=== PATIENT | female | born 2005 | race Caucasian/White ===

== ENCOUNTER 2024-12-24 14:16 | Outpatient (AMB) | payer MEDICAID, SELFPAY ==
[2024-12-24 14:30] VITALS: BP 112/76; PULSE 68; RESP 14; TEMP 36.8; O2SAT 99; BMI 25.5
--- NOTE | 2024-12-24 14:30 | OBCLNT_ITS ---
Vital Signs 12/24/24 14:30 Height 1.75 m Height Method Stated Weight 78.585 kg Weight Measurement Method Standing Scale BMI 25.5 BP 112/76 Blood Pressure Source Automatic Cuff Blood Pressure Location Left Upper Arm Position Sitting Respiration 14 Pulse 68 Pulse Source Monitor Temp 98.2 F Temp Source Oral Pulse Oximetry (%) 99 Oxygen Delivery Method Room Air Allergies/Home Meds Allergies & Medications Allergies No Known Allergies Allergy (Verified 12/24/24 14:31) Medication Reconciliation No Known Home Medications 12/24/24 [History Confirmed 12/24/24] Intake Visit Data Collection New Patient or Established: New Patient (never been to [facility]) Reason for Visit:: first part care Seen by Clinical Staff ONLY (RN/MA): No Dye Automation Operator Required: No Do You Feel Safe at Home: Yes Authorities Contacted: N/A PCP or OBGYN visit in last 3 months: No Hx Now: Yes Are you currently on any form of Control: No Last menstrual period: 11/08/24 Pain Present Currently: No Pain Scale Used: Joseph-[place]/Numerical Pain scale:: 0 Smoking Status Smoking Status: Never smoker Questionnaires Covid-19 Vaccine Questionnaire Has patient been vacinated for Covid-19 Have you been vacinated for Covid-19: No PHQ-9 PHQ-2 Over the last 2 weeks, how often have you been bothered by any of the following problems? 1. Little interest or pleasure in doing things: not at all 2. Feeling down, depressed, or hopeless: not at all Total score: 0 PHQ-9 3. Trouble falling or staying asleep, or sleeping too much: Not at all 4. Feeling tired or having little energy: Not at all 5. Poor appetite or overeating: Not at all 6. Feeling bad about yourself - or that you are a failure or have let yourself or your family down: Not at all 7. Trouble concentrating on things, such as reading the newspaper or watching television: Not at all 8. Moving or speaking so slowly that other people could have noticed? - Or the opposite - being so fidgety or restless that you have been moving around a lot more than usual: not at all 9. Thoughts that you would be better off or of hurting yourself in some way: Not at all Total score: 0 Source: Developed by Drs. Todd Dorsey, Debbie Puentes, Jalil Cook and colleagues, with an educational [place] from [employer]. Depression screen completed yes Social History Living Situation History Marital Status: Life Partner Lives With: Family Housing: House Tobacco History Smoking Status: Never smoker Second Hand Smoke Exposure: No Alcohol History Alcohol Intake: Never Substance Use History Substance Use: none Domestic Abuse History Do You Feel Safe at Home: Yes Past Medical History Past Medical History Have you ever been diagnosed with any of the following: Neurological Problems Cerebrovascular Accident (CVA): No Transient Ischemic Attacks (TIA): No Dementia: No Alzheimer's Disease: No Parkinson's Disease: No Brain Tumor: No Meningitis: No Seizures: No Epilepsy: No Guillain-[place] Syndrome: No Cardiology Problems Myocardial Infarction: No Cardiac Arrhythmia: No Atrial Fibrillation: No Angina: No Heart Murmur: No Coronary Artery Disease: No Atherosclerotic Heart Disease: No Peripheral Vascular Disease: No Hypertension: No (grandparents) Respiratory Problems Chronic Obstructive Pulmonary Disease (COPD): No Asthma: No Bronchitis: No Emphysema: No Tuberculosis: No Hx Cough: No Cough: No Wheezing: No Chest Deformities: No Smoking: No Smoking Cessation Counseling: No Smoking Exposure: No Tobacco Use: No Stomache/Intestinal Problems Liver Cancer: No Hepatitis: No Cirrhosis: No Pancreatic Cancer: No Gall Bladder Disease: No Gastrointestinal Bleed: No Esophageal Varices: No Genital/Urinary Problems Chronic Kidney Disease: No Renal Disease: No Kidney Stones: No Neurogenic Bladder: No Inguinal Hernia: No Dialysis: No Prostate Cancer: No Benign Prostatic Hyperplasia: No Reproductive Problems Breast Cancer: No Endometriosis: No Fibroids: No Genital Herpes: No Gonorrhea: No Previous Pregnancies: No Syphilis: No Musculoskeletal Problems Muscular Dystrophy: No Myasthenia Gravis: No Marfan's Syndrome: No Bone Cancer: No Arthritis: No Rheumatoid Arthritis: No Osteoporosis: No Head,Eye,Nose,Throat Problems Cataracts: No Glaucoma: No Blind: No Retinal Detachment: No Macular Degeneration: No Chronic Ear Infections: No Deafness: No Eye Prosthesis: No Endocrine Problems Diabetes Mellitus Type 1: No Diabetes Mellitus Type 2: No (grandmother) Michaela's Syndrome: No Anil's Disease: No Blood Problems Anemia: No Leukemia: No Hemophilia: No Thalassemia: No Sickle Cell Disease: No Clotting Problems: No Psychologic Problems Schizophrenia: No Recreational Drug Use: No Bipolar Disorder: No Depression: No Anxiety: No Behavior Problems: No Self-Mutilation: No Other Problems Hospitalization: No Autoimmune Disease: No Down Syndrome: No Autism: No Cosmetic Surgery: No Shingles: No Organ Transplant: No Chemotherapy: No Surgical History Angioplasty: No Appendectomy: No Bariatric Surgery: No Breast Surgery: No Cancer Surgery: No Carotid Endarterectomy: No Cholecystectomy: No Colectomy: No Colostomy: No Coronary Artery Bypass Graft: No Valve Replacement: No Herniorrhaphy: No Total Hip Replacement: No History of Present Illness HPI Narrative The patient presents for her first visit. Her last menstrual period was on November 08, making her approximately 7 weeks . She reports experiencing nausea and vomiting, which are consistent with early symptoms. The patient denies any cramping or vaginal bleeding. She is not currently taking vitamins. OB Initial Visit Menstrual History Menstrual reliability: definite Flow: normal Menstrual regularity: regular Monthly: Yes Age at menarche: 11 On control pills at conception: No Date of positive home test: 12/16/24 Associated symptoms (LMP): Reports nausea, vomiting, irritability and other (vaginal dicharge, headaches) OB History : 1 Infection History & Risk Evaluation History of STDs: none Genetic Screening & History Genetic Screening/Teratology Counseling - Includes patient, baby's father, or anyone in either family with: 1. Patient's age 35 years or older as of estimated date of delivery: No 2. Thalassemia (Malawian, Stateless, Mediterranean, or Background); MCV less than 80: No 3. Neural Tube Defect (Meningomyelocele, Spina Bifida, or Anencephaly): No 5. Down Syndrome: No 6. Vu-Sachs (Ashkenazi Rastafarian, Cajun, Danish Leslie): No 7. [place] Disease (Ashkenazi Rastafarian): No 8. Familial Dysautonomia (Ashkenazi Rastafarian): No 9. Sickle Cell Disease or Trait (): No 10. Hemophilia or other blood disorders: No 11. Muscular Dystrophy: No 12. Cystic Fibrosis: No 13. [place]'s Chorea: No 14. Mental Retardation/Autism: No 15. Other inherited genetic or chromosomal disorder: No 16. Maternal Metabolic Disorder (EG,TYPE 1 Diabetes, PKU): No 17. Patient or baby's father had a child with defects not listed above: No 18. Recurrent loss or a stillbirth: No 19. Medications (including supplements, vitamins, herbs or otc drugs)/illicit/recreational drugs/alcohol since last menstrual period: No 20. Any other: No Infection History 1. Live with someone with TB or exposed to TB: No 2. Rash or viral illness since last menstrual period: No 3. Hepatitis B,C: No Other (see comments) Source: [employer] OB Flowsheet OB Flowsheet Initial Weight: Not Recorded Date -?-?-?-?-?-?-?-?-?-?-?-?- EGA Weight Edema CTX Effacement BP Fundal ht Pres Dilation Effacement Station Visit Note Alb Glu FHR Mov 12/24/24 -?-?-?-?-?-?-?-?-?-?-?-?- 6w 4d 78.585 kg 112/76 New O B. 7w. Bedside c/w dates. 4w. Labs 167 Review of Systems Review of Systems Systems Reviewed: All systems reviewed, normal except as documented Gastrointestinal Gastrointestinal: Reports nausea and Reports vomiting Psychiatric Psychiatric: Reports irritability Exam General Limitations: no limitations General Appearance: alert, in no apparent distress, comfortable, cooperative, healthy appearing, well developed and well groomed Chest Chest inspection: Present normal inspection and symmetric chest wall rise Abdominal Abdominal exam: Present soft and normal bowel sounds Psych Psychiatric exam: Present normal affect and normal mood Skin Skin exam: Present warm, dry, intact and normal color Assessment & Plan Diagnosis / Problem List (1) Supervision of high risk , unspecified, first trimester: Status: Acute Plan: Patient presents for first visit at approximately 7 weeks gestation based on last menstrual period of November 08. Ultrasound was performed, revealing a small sac that was difficult to measure due to its size. Patient reports nausea but denies bleeding. No other significant symptoms or concerns were reported. - Perform blood tests as ordered - Follow-up appointment in 2 weeks for repeat ultrasound and measurement - vitamin prescription to be sent to patient's pharmacy Office Procedures OB Clinic LOC & Office Proc's Nursing/Assessment Patient Status: Established Patient OB Clinic Nursing Assessment: Medication Reconciliation, Update PMH in EMR and Vital Signs OB Clinic Coordination of Care: Complex Care and Chronic Disease 1-5, Consent,records obtained, informed consent, Education Simp Pt/Fam, Lab and Imaging orders and Staff clarify orders Special Needs: Heart tones Established Patient Charge Established Patient Point Assignment: 130 Established Patient Point Charge: EP Level 4 (120-155) Bedside Ultrasounds US Transabdominal >14 weeks at bedside: Yes
== END 2024-12-24 14:59 | disposition home or self-care (01) ==
LOC: HODSOBC 14:16
PROVIDERS: Supervising Provider Obstetrics & Gynecology; Visit Provider Obstetrics & Gynecology
DX: O09.91 Supervision of high risk pregnancy, unspecified, first trimester (principal); Z3A.01 Less than 8 weeks gestation of pregnancy
CPT/HCPCS: 76805; 99214; G0463

== ENCOUNTER 2025-01-05 14:26 | Outpatient (AMB) | payer MEDICAID, SELFPAY ==
--- NOTE | 2025-01-05 14:25 | OBCLNT_ITS ---
Vital Signs 01/05/25 14:29 Height 1.75 m Height Method Stated Weight 78.642 kg Weight Measurement Method Standing Scale BMI 25.7 BP 116/73 Blood Pressure Source Automatic Cuff Blood Pressure Location Left Upper Arm Position Sitting Respiration 14 Pulse 66 Pulse Source Monitor Temp 98.2 F Temp Source Oral Pulse Oximetry (%) 98 Oxygen Delivery Method Room Air Allergies/Home Meds Allergies & Medications Allergies No Known Allergies Allergy (Verified 01/05/25 14:31) Medication Reconciliation doxylamine 10 mg-pyridoxine (vit B6) 10 mg tablet,delayed release (Diclegis) 1 tab PO BID 30 days #60 tabs 01/05/25 [Rx] ondansetron 4 mg disintegrating tablet 4 mg PO Q6H PRN nausea and vomiting 30 days #120 tabs 01/05/25 [Rx] vitamins with calcium no.72-iron 29 mg-folic acid 1 mg tablet ( Plus) 1 tab PO QDAY 90 days #90 tabs 01/05/25 [Rx] Intake Visit Data Collection New Patient or Established: Established Patient (seen at [facility] within 3 years) Reason for Visit:: CARE Seen by Clinical Staff ONLY (RN/MA): No Medicare Biller Required: Yes Medicare Biller's name/title: ISMA GROSSMAN Do You Feel Safe at Home: Yes Authorities Contacted: N/A PCP or OBGYN visit in last 3 months: Yes Hx Now: Yes Are you currently on any form of Control: No Pain Present Currently: Yes Pain Location: Head Pain Scale Used: Joseph-[place]/Numerical Pain scale:: 6 Smoking Status Smoking Status: Never smoker Are you interested in Quitting?: No Questionnaires Covid-19 Vaccine Questionnaire Has patient been vacinated for Covid-19 Have you been vacinated for Covid-19: No PHQ-9 PHQ-2 Over the last 2 weeks, how often have you been bothered by any of the following problems? 1. Little interest or pleasure in doing things: not at all 2. Feeling down, depressed, or hopeless: not at all Total score: 0 PHQ-9 3. Trouble falling or staying asleep, or sleeping too much: Not at all 4. Feeling tired or having little energy: Not at all 5. Poor appetite or overeating: Not at all 6. Feeling bad about yourself - or that you are a failure or have let yourself or your family down: Not at all 7. Trouble concentrating on things, such as reading the newspaper or watching television: Not at all 8. Moving or speaking so slowly that other people could have noticed? - Or the opposite - being so fidgety or restless that you have been moving around a lot more than usual: not at all 9. Thoughts that you would be better off or of hurting yourself in some way: Not at all Total score: 0 Source: Developed by Drs. Todd Dorsey, Debbie Puentes, Jalil Cook and colleagues, with an educational [place] from [employer]. Depression screen completed yes Social History Living Situation History Lives With: Family Housing: House Tobacco History Smoking Status: Never smoker Second Hand Smoke Exposure: No Alcohol History Alcohol Intake: Never Substance Use History Substance Use: none Domestic Abuse History Do You Feel Safe at Home: Yes Past Medical History Past Medical History Have you ever been diagnosed with any of the following: Neurological Problems Cerebrovascular Accident (CVA): No Transient Ischemic Attacks (TIA): No Dementia: No Alzheimer's Disease: No Parkinson's Disease: No Brain Tumor: No Meningitis: No Seizures: No Epilepsy: No Guillain-[place] Syndrome: No Cardiology Problems Myocardial Infarction: No Cardiac Arrhythmia: No Atrial Fibrillation: No Angina: No Heart Murmur: No Coronary Artery Disease: No Atherosclerotic Heart Disease: No Peripheral Vascular Disease: No Hypertension: No (grandparents) Respiratory Problems Chronic Obstructive Pulmonary Disease (COPD): No Asthma: No Bronchitis: No Emphysema: No Tuberculosis: No Hx Cough: No Cough: No Wheezing: No Chest Deformities: No Smoking: No Smoking Cessation Counseling: No Smoking Exposure: No Tobacco Use: No Stomache/Intestinal Problems Liver Cancer: No Hepatitis: No Cirrhosis: No Pancreatic Cancer: No Gall Bladder Disease: No Gastrointestinal Bleed: No Esophageal Varices: No Genital/Urinary Problems Renal Disease: No Kidney Stones: No Neurogenic Bladder: No Inguinal Hernia: No Dialysis: No Reproductive Problems Breast Cancer: No Endometriosis: No Fibroids: No Genital Herpes: No Gonorrhea: No Previous Pregnancies: No Syphilis: No Musculoskeletal Problems Muscular Dystrophy: No Myasthenia Gravis: No Marfan's Syndrome: No Bone Cancer: No Arthritis: No Rheumatoid Arthritis: No Osteoporosis: No Head,Eye,Nose,Throat Problems Cataracts: No Glaucoma: No Blind: No Retinal Detachment: No Macular Degeneration: No Chronic Ear Infections: No Deafness: No Eye Prosthesis: No Endocrine Problems Diabetes Mellitus Type 1: No Diabetes Mellitus Type 2: No (grandmother) Michaela's Syndrome: No [place]'s Disease: No Blood Problems Anemia: No Leukemia: No Hemophilia: No Thalassemia: No Sickle Cell Disease: No Clotting Problems: No Psychologic Problems Schizophrenia: No Recreational Drug Use: No Bipolar Disorder: No Depression: No Anxiety: No Behavior Problems: No Self-Mutilation: No Other Problems Hospitalization: No Down Syndrome: No Autism: No Cosmetic Surgery: No Shingles: No Organ Transplant: No Chemotherapy: No Surgical History Angioplasty: No Appendectomy: No Bariatric Surgery: No Breast Surgery: No Cancer Surgery: No Carotid Endarterectomy: No Cholecystectomy: No Colectomy: No Colostomy: No Coronary Artery Bypass Graft: No Valve Replacement: No Herniorrhaphy: No Total Hip Replacement: No History of Present Illness HPI Kiley Kebede presents for a visit with complaints of nausea and headaches. The patient reports that the nausea is causing her headaches. No specific details about the onset, duration, severity, or impact on daily functioning were provided. The patient has not yet started any medication for her symptoms, as evidenced by the clinician's statement about sending a prescription now. The patient is in the early stages of , with an ultrasound performed during the visit. The clinician noted that the patient's uterus is tilted, making it difficult to obtain clear images. However, a heartbeat was detected and demonstrated to the patient. Immunizations - Rubella: Patient is immune Review of Systems HEENT: Positive for headache. Gastrointestinal: Positive for nausea. OB Ultrasound OB Ultrasound Ultrasound technique: transabdominal Gestational sac assessment: Presence, location, size, shape: visualized, heartbeat detected FHR 175 bpm. Images not clear due to tilted uterus Visit OB Visit Log OB Flowsheet Initial Weight: Not Recorded Date -?-?-?-?-?-?-?-?-?-?-?-?- EGA Weight Edema CTX Effacement BP Fundal ht Pres Dilation Effacement Station Visit Note Alb Glu FHR Mov 12/24/24 -?-?-?-?-?-?-?-?-?-?-?-?- 6w 4d 78.585 kg 112/76 New O B. 7w. Bedside c/w dates. 4w. Labs 167 01/05/25 -?-?-?-?-?-?-?-?-?-?-?-?- 8w 2d 78.642 kg 116/73 Jaylin Kebede presents for a visit with complaints of nausea and headaches. - STAT transvaginal ultrasound ordered - Return for NIPT (Non-Invasive Testing) once due date is confirmed - Follow up with ultrasound results - Prescription for anti-nausea medicatio n to be sent to the pharmacy - Provide patient with printed prescript ion. Initial labs were performed on 01-02-2025. Results show: - Hepatitis B: Negative - Hepatitis C: Negative - RPR: Non-reactive - Rubella: Immune - Blood group: A positive - Antibody screen: Negative - HIV: Negative - Gonorrhea and chlamydia: Negative - Urine culture: Trace ketones, 1+ occult blood, mixed genital antelmo 175 active ANOOP Calculator Estimated Delivery Date Method Current WG Current Estimate 08/15/25 LMP (Certain) 8w 4d Assessment & Plan Diagnosis / Problem List (1) Supervision of high risk , unspecified, first trimester: Status: Acute (2) Hyperemesis gravidarum: Status: Acute (3) Nausea: Status: Acute Plan Ana Kebede presents for care with nausea and headache. Initial labs and ultrasound were performed. Intrauterine Assessment: Intrauterine confirmed via ultrasound. heartbeat was visualized, but due to a tilted uterus, images were not clear. Patient was sent for a STAT transvaginal ultrasound for better visualization and to confirm the due date. Plan: - STAT transvaginal ultrasound ordered - Return for NIPT (Non-Invasive Testing) once due date is confirmed - Follow up with ultrasound results Nausea and headache Assessment: Patient reports nausea, which is causing headaches. This is likely -related nausea and vomiting (morning sickness). Plan: - Prescription for anti-nausea medication to be sent to the pharmacy - Provide patient with printed prescription Initial laboratory results Assessment: Initial labs were performed on 01-02-2025. Results show: - Hepatitis B: Negative - Hepatitis C: Negative - RPR: Non-reactive - Rubella: Immune - Blood group: A positive - Antibody screen: Negative - HIV: Negative - Gonorrhea and chlamydia: Negative - Urine culture: Trace ketones, 1+ occult blood, mixed genital antelmo Plan: - Review and interpret all lab results - Address any abnormal findings as necessary Office Procedures OB Clinic LOC & Office Proc's Nursing/Assessment Patient Status: Established Patient OB Clinic Nursing Assessment: Medication Reconciliation, Update PMH in EMR and Vital Signs OB Clinic Coordination of Care: Complex Care and Chronic Disease 1-5, Consent,records obtained, informed consent, Education Simp Pt/Fam, Results/Orders obtained and Staff clarify orders Special Needs: Heart tones Established Patient Charge Established Patient Point Assignment: 120 Established Patient Point Charge: EP Level 4 (120-155) Bedside Ultrasounds US Transabdominal >14 weeks at bedside: Yes
[2025-01-05 14:29] VITALS: BP 116/73; PULSE 66; RESP 14; TEMP 36.8; O2SAT 98; BMI 25.7
== END 2025-01-05 14:57 | disposition home or self-care (01) ==
LOC: HODSOBC 14:26
PROVIDERS: PCP Obstetrics & Gynecology; Referring Provider Obstetrics & Gynecology; Supervising Provider Obstetrics & Gynecology; Visit Provider Obstetrics & Gynecology
DX: O09.891 Supervision of other high risk pregnancies, first trimester (principal); Z3A.08 8 weeks gestation of pregnancy; O21.0 Mild hyperemesis gravidarum; O99.891 Other specified diseases and conditions complicating pregnancy; R51.9 Headache, unspecified
CPT/HCPCS: 76805; 99214; G0463

== ENCOUNTER 2025-01-19 10:29 | Outpatient (AMB) | payer MEDICAID, SELFPAY ==
--- NOTE | 2025-01-19 10:38 | OBCLNT_ITS ---
Vital Signs 01/19/25 10:49 Height 1.75 m Height Method Stated Weight 78.018 kg Weight Measurement Method Standing Scale BMI 25.4 BP 108/71 Blood Pressure Source Automatic Cuff Blood Pressure Location Left Upper Arm Position Sitting Respiration 16 Pulse 74 Pulse Source Monitor Temp 98.4 F Temp Source Oral Pulse Oximetry (%) 98 Oxygen Delivery Method Room Air Allergies/Home Meds Allergies & Medications Allergies No Known Allergies Allergy (Verified 01/19/25 10:50) Medication Reconciliation doxylamine 10 mg-pyridoxine (vit B6) 10 mg tablet,delayed release (Diclegis) 1 tab PO BID 30 days #60 tabs 01/05/25 [Rx Confirmed 01/19/25] ondansetron 4 mg disintegrating tablet 4 mg PO Q6H PRN nausea and vomiting 30 days #120 tabs 01/05/25 [Rx Confirmed 01/19/25] vitamins with calcium no.72-iron 29 mg-folic acid 1 mg tablet ( Plus) 1 tab PO QDAY 90 days #90 tabs 01/05/25 [Rx Confirmed 01/19/25] omeprazole 40 mg capsule,delayed release 40 mg PO QDAY 30 days #30 caps 01/19/25 [Rx] Intake Visit Data Collection New Patient or Established: Established Patient (seen at [facility] within 3 years) Reason for Visit:: CARE Seen by Clinical Staff ONLY (RN/MA): No Concaving Machine Operator Required: Yes Concaving Machine Operator's name/title: ISMABELÉN GROSSMAN Do You Feel Safe at Home: Yes Authorities Contacted: N/A PCP or OBGYN visit in last 3 months: No Hx Now: Yes Are you currently on any form of Control: No Pain Present Currently: No Pain Scale Used: Joseph-[place]/Numerical Pain scale:: 0 Smoking Status Smoking Status: Never smoker Questionnaires Covid-19 Vaccine Questionnaire Has patient been vacinated for Covid-19 Have you been vacinated for Covid-19: No PHQ-9 PHQ-2 Over the last 2 weeks, how often have you been bothered by any of the following problems? 1. Little interest or pleasure in doing things: not at all 2. Feeling down, depressed, or hopeless: not at all Total score: 0 PHQ-9 3. Trouble falling or staying asleep, or sleeping too much: Not at all 4. Feeling tired or having little energy: Not at all 5. Poor appetite or overeating: Not at all 6. Feeling bad about yourself - or that you are a failure or have let yourself or your family down: Not at all 7. Trouble concentrating on things, such as reading the newspaper or watching television: Not at all 8. Moving or speaking so slowly that other people could have noticed? - Or the opposite - being so fidgety or restless that you have been moving around a lot more than usual: not at all 9. Thoughts that you would be better off or of hurting yourself in some way: Not at all Total score: 0 Source: Developed by Drs. Todd Dorsey, Debbie Puentes, Jalil Cook and colleagues, with an educational [place] from [employer]. Depression screen completed yes Social History Living Situation History Lives With: Family Housing: House Tobacco History Smoking Status: Never smoker Second Hand Smoke Exposure: No Alcohol History Alcohol Intake: Never Substance Use History Substance Use: none Domestic Abuse History Do You Feel Safe at Home: Yes Past Medical History Past Medical History Have you ever been diagnosed with any of the following: Neurological Problems Cerebrovascular Accident (CVA): No Transient Ischemic Attacks (TIA): No Dementia: No Alzheimer's Disease: No Parkinson's Disease: No Brain Tumor: No Meningitis: No Seizures: No Epilepsy: No Guillain-[place] Syndrome: No Cardiology Problems Myocardial Infarction: No Cardiac Arrhythmia: No Atrial Fibrillation: No Angina: No Heart Murmur: No Coronary Artery Disease: No Atherosclerotic Heart Disease: No Peripheral Vascular Disease: No Hypertension: No (grandparents) Respiratory Problems Chronic Obstructive Pulmonary Disease (COPD): No Asthma: No Bronchitis: No Emphysema: No Tuberculosis: No Hx Cough: No Cough: No Wheezing: No Chest Deformities: No Smoking: No Smoking Cessation Counseling: No Smoking Exposure: No Tobacco Use: No Stomache/Intestinal Problems Liver Cancer: No Hepatitis: No Cirrhosis: No Pancreatic Cancer: No Gall Bladder Disease: No Gastrointestinal Bleed: No Esophageal Varices: No Genital/Urinary Problems Renal Disease: No Kidney Stones: No Neurogenic Bladder: No Inguinal Hernia: No Dialysis: No Reproductive Problems Breast Cancer: No Endometriosis: No Fibroids: No Genital Herpes: No Gonorrhea: No Previous Pregnancies: No Syphilis: No Musculoskeletal Problems Muscular Dystrophy: No Myasthenia Gravis: No Marfan's Syndrome: No Bone Cancer: No Arthritis: No Rheumatoid Arthritis: No Osteoporosis: No Head,Eye,Nose,Throat Problems Cataracts: No Glaucoma: No Blind: No Retinal Detachment: No Macular Degeneration: No Chronic Ear Infections: No Deafness: No Eye Prosthesis: No Endocrine Problems Diabetes Mellitus Type 1: No Diabetes Mellitus Type 2: No (grandmother) Michaela's Syndrome: No Augusta's Disease: No Blood Problems Anemia: No Leukemia: No Hemophilia: No Thalassemia: No Sickle Cell Disease: No Clotting Problems: No Psychologic Problems Schizophrenia: No Recreational Drug Use: No Bipolar Disorder: No Depression: No Anxiety: No Behavior Problems: No Self-Mutilation: No Other Problems Hospitalization: No Down Syndrome: No Autism: No Cosmetic Surgery: No Shingles: No Organ Transplant: No Chemotherapy: No Surgical History Angioplasty: No Appendectomy: No Bariatric Surgery: No Breast Surgery: No Cancer Surgery: No Carotid Endarterectomy: No Cholecystectomy: No Colectomy: No Colostomy: No Coronary Artery Bypass Graft: No Valve Replacement: No Herniorrhaphy: No Total Hip Replacement: No History of Present Illness HPI Narrative - Ana Kebede is a 1 para 0 patient presenting for care at 10 weeks and 2 days gestation by last menstrual period. - Estimated due date is August 15, 2025, confirmed by recent ultrasound. - Patient reports experiencing nausea and vomiting. - She mentions having acid reflux. - No medications were previously prescribed for these symptoms. No contractions/ LOF/VB, reports good FM No CLEMENS/VC/RUQ/Epig pain Visit OB Visit Log OB Flowsheet Initial Weight: Not Recorded Date -?-?-?-?-?-?-?-?-?-?-?-?- EGA Weight Edema CTX Effacement BP Fundal ht Pres Dilation Effacement Station Visit Note Alb Glu FHR Mov 12/24/24 -?-?-?-?-?-?-?-?-?-?-?-?- 6w 4d 78.585 kg 112/76 New O B. 7w. Bedside c/w dates. 4w. Labs 167 01/05/25 -?-?-?-?-?-?-?-?-?-?-?-?- 8w 2d 78.642 kg 116/73 Jaylin a Kebede presents for a visit with complaints of nausea and headaches. - STAT transvaginal ultrasound ordered - Return for NIPT (Non-Invasive Testing) once due date is confirmed - Follow up with ultrasound results - Prescription for anti-nausea medicatio n to be sent to the pharmacy - Provide patient with printed prescript ion. Initial labs were performed on 01-02-2025. Results show: - Hepatitis B: Negative - Hepatitis C: Negative - RPR: Non-reactive - Rubella: Immune - Blood group: A positive - Antibody screen: Negative - HIV: Negative - Gonorrhea and chlamydia: Negative - Urine culture: Trace ketones, 1+ occult blood, mixed genital antelmo 175 active 01/19/25 -?--?-?-?-?-?-?-?-?-?-?-?- 10w 2d 78.018 kg 108/71 No C TX/LOF/VB. Reports good FM. No CLEMENS/VS, Epig/RUQ pain. Complains of nausea, vomiting, and acid reflux. No prior medications started. Ultrasound (01/15/2025): Dating confirmed at 10w1d. Assessment & Plan: at 10w2d with IUP. First trimester symptoms include nausea and reflux. Prescribe reflux medication; send to [facility] Order genetic screening for aneuploidy a nd gender Provide comprehensive lab order s Continue routine care ANOOP Calculator Estimated Delivery Date Method Current WG Current Estimate 08/15/25 LMP (Certain) 10w 4d Exam General General Appearance: alert, in no apparent distress and healthy appearing Head Head exam: atraumatic Neck Neck exam: Present normal inspection and trachea midline Chest Chest inspection: Present normal inspection and symmetric chest wall rise External exam: Present normal external exam; Absent tenderness Neuro Neurological exam: Present oriented X3 Psych Psychiatric exam: Present normal affect and normal mood Assessment & Plan Diagnosis / Problem List (1) Hyperemesis gravidarum: Status: Acute (2) GERD (gastroesophageal reflux disease): Status: Acute Plan Problem List - , first trimester - Gastroesophageal reflux disease Assessment - Intrauterine at 10 weeks 2 days gestation by last menstrual period - Estimated due date 08/15/2025 - Ultrasound on 01/15/2025 confirmed gestational age of 10 weeks 1 day - 1 Para 0 - Patient experiencing nausea and vomiting Plan - Prescribe medication for acid reflux - Order genetic blood test for screening and gender determination - Provide patient with order for comprehensive lab tests - Send prescription to [facility] pharmacy Educated the patient on labor signs, including regular contractions, lower back pain, and changes in vaginal discharge. Advised avoiding heavy lifting and getting adequate rest. Instructed to contact the office immediately if any signs occur. Discussed the importance of a balanced diet rich in folic acid, iron, and calcium, and provided a list of recommended and to-avoid foods. Emphasized avoiding high-sugar foods to reduce gestational diabetes risk. Encouraged hydration and frequent, small meals for energy.. Office Procedures OB Clinic LOC & Office Proc's Nursing/Assessment Patient Status: Established Patient OB Clinic Nursing Assessment: Medication Reconciliation, Update PMH in EMR and Vital Signs OB Clinic Coordination of Care: Complex Care and Chronic Disease 1-5, Consent,records obtained, informed consent, Education Simp Pt/Fam, Results/Orders obtained and Staff clarify orders Special Needs: Heart tones Miscellaneous Interventions: Blood/Urine Collection Established Patient Charge Established Patient Point Assignment: 150 Established Patient Point Charge: EP Level 4 (120-155)
[2025-01-19 10:49] VITALS: BP 108/71; PULSE 74; RESP 16; TEMP 36.9; O2SAT 98; BMI 25.4
== END 2025-01-19 10:57 | disposition home or self-care (01) ==
LOC: HODSOBC 10:29
PROVIDERS: PCP Obstetrics & Gynecology; Referring Provider Obstetrics & Gynecology; Supervising Provider Obstetrics & Gynecology; Visit Provider Obstetrics & Gynecology
DX: O09.611 Supervision of young primigravida, first trimester (principal); Z3A.10 10 weeks gestation of pregnancy; O21.0 Mild hyperemesis gravidarum; O09.891 Supervision of other high risk pregnancies, first trimester; O99.611 Diseases of the digestive system complicating pregnancy, first trimester; K21.9 Gastro-esophageal reflux disease without esophagitis
CPT/HCPCS: 99214; G0463

== ENCOUNTER 2025-02-18 15:24 | Outpatient (AMB) | payer MEDICAID, SELFPAY ==
[2025-02-18 15:29] VITALS: BP 115/74; PULSE 69; RESP 15; TEMP 36.7; O2SAT 98; BMI 26.5
--- NOTE | 2025-02-18 15:29 | OBCLNT_ITS ---
Vital Signs 02/18/25 15:29 Height 1.75 m Height Method Stated Weight 81.25 kg Weight Measurement Method Standing Scale BMI 26.5 BP 115/74 Blood Pressure Source Automatic Cuff Blood Pressure Location Right Upper Arm Position Sitting Respiration 15 Pulse 69 Pulse Source Monitor Temp 98.1 F Temp Source Oral Pulse Oximetry (%) 98 Oxygen Delivery Method Room Air Allergies/Home Meds Allergies & Medications Allergies No Known Allergies Allergy (Verified 02/18/25 15:30) Medication Reconciliation doxylamine 10 mg-pyridoxine (vit B6) 10 mg tablet,delayed release (Diclegis) 1 tab PO BID 30 days #60 tabs 01/05/25 [Rx Confirmed 02/18/25] ondansetron 4 mg disintegrating tablet 4 mg PO Q6H PRN nausea and vomiting 30 days #120 tabs 01/05/25 [Rx Confirmed 02/18/25] vitamins with calcium no.72-iron 29 mg-folic acid 1 mg tablet ( Plus) 1 tab PO QDAY 90 days #90 tabs 01/05/25 [Rx Confirmed 02/18/25] omeprazole 40 mg capsule,delayed release 40 mg PO QDAY 30 days #30 caps 01/19/25 [Rx Confirmed 02/18/25] Intake Visit Data Collection New Patient or Established: Established Patient (seen at [facility] within 3 years) Reason for Visit:: CARE Seen by Clinical Staff ONLY (RN/MA): No Counselling Psychologist Required: Yes Counselling Psychologist's name/title: ISMA GROSSMAN Do You Feel Safe at Home: Yes Authorities Contacted: N/A PCP or OBGYN visit in last 3 months: Yes Hx Now: Yes Pain Present Currently: No Pain Scale Used: Joseph-[place]/Numerical Pain scale:: 0 Smoking Status Smoking Status: Never smoker Questionnaires Covid-19 Vaccine Questionnaire Has patient been vacinated for Covid-19 Have you been vacinated for Covid-19: Yes PHQ-9 PHQ-2 Over the last 2 weeks, how often have you been bothered by any of the following problems? 1. Little interest or pleasure in doing things: not at all 2. Feeling down, depressed, or hopeless: not at all Total score: 0 PHQ-9 3. Trouble falling or staying asleep, or sleeping too much: Not at all 4. Feeling tired or having little energy: Not at all 5. Poor appetite or overeating: Not at all 6. Feeling bad about yourself - or that you are a failure or have let yourself or your family down: Not at all 7. Trouble concentrating on things, such as reading the newspaper or watching television: Not at all 8. Moving or speaking so slowly that other people could have noticed? - Or the opposite - being so fidgety or restless that you have been moving around a lot more than usual: not at all 9. Thoughts that you would be better off or of hurting yourself in some way: Not at all Total score: 0 Source: Developed by Drs. Todd Dorsey, Debbie Puentes, Jalil Cook and colleagues, with an educational [place] from [employer]. 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 Patient reports nausea. Currently being treated for severe hyperemesis and gastroesophageal reflux. Denies CLEMENS, VC, and epigastric pain. - Ana Kebede is a 19-year-old at 14 weeks and 4 days gestation presenting for a visit. - Patient has been seen for previous visits at this clinic. - She is currently being treated for: - Severe hyperemesis - Gastroesophageal reflux - Patient reports improvement in her nausea symptoms. - All initial testing has been completed and confirmed. Care OB Visit Log OB Flowsheet Initial Weight: Not Recorded Date -?-?-?-?-?-?-?-?-?-?-?-?- EGA Weight BP Alb Glu CTX Pres Fundal ht FHR Mov Dilation Station Effacement Hx Notes Visit Note 12/24/24 -?-?-?-?-?-?-?-?-?-?-?-?- 6w 4d 78.585 kg 112/76 167 New OB. 7w. Bedside c/w dates. 4w. Labs 01/05/25 -?-?-?-?-?-?-?-?-?-?-?-?- 8w 2d 78.642 kg 116/73 175 active Ana Kebede presents for a visit with complaints of nausea and headaches. - STAT transvaginal ultrasound ordered - Return for NIPT (Non-Invasive Testing) once due date is confirmed - Follow up with ultrasound results - Prescription for anti-nausea medicatio n to be sent to the pharmacy - Provide patient with printed prescript ion. Initial labs were performed on 01-02-2025. Results show: - Hepatitis B: Negative - Hepatitis C: Negative - RPR: Non-reactive - Rubella: Immune - Blood group: A positive - Antibody screen: Negative - HIV: Negative - Gonorrhea and chlamydia: Negative - Urine culture: Trace ketones, 1+ occult blood, mixed genit al antelmo 01/19/25 -?-?-?-?-?-?-?-?-?-?-?-?- 10w 2d 78.018 kg 108/71 No CTX/LOF/VB. Reports good FM. No CLEMENS/VS, Epig/RUQ pain. Complains of nausea, vomiting, and acid reflux. No prior medications started. Ultrasound (01/15/2025): Dating confirmed at 10w1d. Assessment & Plan: at 10w2d with IUP. First trimester symptoms include nausea and reflux. Prescribe reflux medication; send to [facility] Order genetic screening for aneuploidy a nd gender Provide comprehensive lab order s Continue routine care 02/18/25 -?-?-?-?-?-?-?-?-?-?-?-?- 14w 4d 81.25 kg 115/74 at 14 weeks and 4 days gestation presents for routine care. Reports improvement in nausea; currently under treatment for severe hyperemesis and GERD. No other complaints. Denies CLEMENS, VC, or epigastric pain. heart tones 161 bpm. All initial labs completed; blood test from 2 days ago pending. Plan: Problem List: 14w4d, hyperemes is gravidarum, gastroesophageal reflux. Continue current medical management. Fol low-up in 4 weeks. Await bloodwork results. Anatomy ultrasound to be scheduled at 20 weeks; patient will receive call from [facility] Routine counseling provided. ANOOP Calculator Estimated Delivery Date Method Current WG Current Estimate 08/15/25 LMP (Certain) 16w 1d Exam General General Appearance: alert, in no apparent distress and healthy appearing Head Head exam: atraumatic Neck Neck exam: Present normal inspection and trachea midline Chest Chest inspection: Present normal inspection and symmetric chest wall rise External exam: Present normal external exam; Absent tenderness Neuro Neurological exam: Present oriented X3 Psych Psychiatric exam: Present normal affect and normal mood Office Procedures OB Clinic LOC & Office Proc's Nursing/Assessment Patient Status: Established Patient OB Clinic Nursing Assessment: Medication Reconciliation, Update PMH in EMR and Vital Signs OB Clinic Coordination of Care: Complex Care and Chronic Disease 1-5, Consent,records obtained, informed consent, Education Simp Pt/Fam, Lab and Imaging orders, Results/Orders obtained and Staff clarify orders Special Needs: Heart tones Established Patient Charge Established Patient Point Assignment: 135 Established Patient Point Charge: EP Level 4 (120-155) Assessment & Plan Diagnosis / Problem List (1) GERD (gastroesophageal reflux disease): Status: Acute (2) Nausea: Status: Acute (3) Hyperemesis gravidarum: Status: Acute (4) Supervision of high risk , unspecified, first trimester: Status: Acute Plan Irene Kebede is a 19-year-old at 14 weeks and 4 days gestation presenting for a visit, with a history of severe hyperemesis and gastroesophageal reflux. Intrauterine Assessment: Patient is at 14 weeks and 4 days gestation. heart rate was documented at 161 bpm, which is within normal range. The clinician noted that everything is looking good regarding the assessment. Plan: - Follow-up visit scheduled in one month - Ultrasound scheduled at 20 weeks gestation (patient to receive phone call from [facility] for appointment) Hyperemesis gravidarum Assessment: Patient has a history of severe hyperemesis gravidarum, which is currently being treated. The clinician inquired about the patient's nausea, to which the response indicated improvement. Plan: - Continue current treatment regimen (specifics not mentioned in transcript) Gastroesophageal reflux disease (GERD) Assessment: Patient has a history of gastroesophageal reflux, which is currently being treated. Plan: - Continue current treatment regimen (specifics not mentioned in transcript) screening Assessment: Patient underwent blood testing 2 days prior to this visit. Results are pending and expected to be available in 4-5 days. Plan: - Await results of recent blood tests Heart Rate (FHR) and Dates/Viability Verified Review Labs: Confirm results and address any abnormalities with treatment or referrals. History & Symptoms: Ask about nausea, vomiting, bleeding, or cramping. Screen for mental health concerns. Physical Exam: Check weight, blood pressure, and heart rate (via Doppler). Education: Discuss nutrition, exercise, and avoiding harmful substances. Review safe medications and warning signs (e.g., severe pain, bleeding). Screening Tests: Offer genetic screening if not done. Discuss upcoming anatomy scan (18-20 weeks). Plan: Schedule next visit (typically 4 weeks later) and any needed tests. Keep it supportive, address concerns, and ensure clear follow-up instructions.
== END 2025-02-18 16:14 | disposition home or self-care (01) ==
LOC: HODSOBC 15:24
PROVIDERS: PCP Obstetrics & Gynecology; Referring Provider Obstetrics & Gynecology; Supervising Provider Obstetrics & Gynecology; Visit Provider Obstetrics & Gynecology
DX: O09.892 Supervision of other high risk pregnancies, second trimester (principal); Z3A.14 14 weeks gestation of pregnancy; O21.0 Mild hyperemesis gravidarum; O99.612 Diseases of the digestive system complicating pregnancy, second trimester; K21.9 Gastro-esophageal reflux disease without esophagitis
CPT/HCPCS: 99214; G0463

== ENCOUNTER 2025-04-06 13:36 | Outpatient (AMB) | payer MEDICAID, SELFPAY ==
[2025-04-06 13:40] VITALS: BP 118/70; PULSE 83; RESP 17; TEMP 36.5; O2SAT 98; BMI 27.1
--- NOTE | 2025-04-06 13:40 | OBCLNT_ITS ---
Vital Signs 04/06/25 13:40 Height 1.75 m Height Method Measured Weight 83.178 kg Weight Measurement Method Standing Scale BMI 27.1 BP 118/70 Blood Pressure Source Automatic Cuff Blood Pressure Location Right Upper Arm Position Sitting Respiration 17 Pulse 83 Pulse Source Monitor Temp 97.7 F Temp Source Temporal Artery Scan Pulse Oximetry (%) 98 Oxygen Delivery Method Room Air Allergies/Home Meds Allergies & Medications Allergies No Known Allergies Allergy (Verified 04/06/25 13:41) Medication Reconciliation vitamins with calcium no.72-iron 29 mg-folic acid 1 mg tablet ( Plus) 1 tab PO QDAY 90 days #90 tabs 04/06/25 [Rx] cephalexin 500 mg capsule 500 mg PO QID 7 days #28 caps 04/08/25 [Rx] Intake Visit Data Collection New Patient or Established: Established Patient (seen at [facility] within 3 years) Reason for Visit:: OBC Consent obtained for Telemed Visit: No Seen by 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 1. Little interest or pleasure in doing things: not at all PHQ-9 8. Moving or speaking so slowly that other people could have noticed? - Or the opposite - being so fidgety or restless that you have been moving around a lot more than usual: not at all Source: Developed by Drs. Todd Dorsey, Debbie Puentes, Jalil Cook and colleagues, with an educational [place] from [employer]. 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 7w. Bedside c/w dates. 4w. Labs 01/05/25 -?-?-?-?-?-?-?-?-?-?-?-?- 8w 2d 78.642 kg 116/73 175 active Ana Kebede presents for a visit with complaints of nausea and headaches. - STAT transvaginal ultrasound ordered - Return for NIPT (Non-Invasive Testing) once due date is confirmed - Follow up with ultrasound results - Prescription for anti-nausea medicatio n to be sent to the pharmacy - Provide patient with printed prescript ion. Initial labs were performed on 01-02-2025. Results show: - Hepatitis B: Negative - Hepatitis C: Negative - RPR: Non-reactive - Rubella: Immune - Blood group: A positive - Antibody screen: Negative - HIV: Negative - Gonorrhea and chlamydia: Negative - Urine culture: Trace ketones, 1+ occult blood, mixed genit al antelmo 01/19/25 -?-?-?-?-?-?-?-?-?-?-?-?- 10w 2d 78.018 kg 108/71 No CTX/LOF/VB. Reports good FM. No CLEMENS/VS, Epig/RUQ pain. Complains of nausea, vomiting, and acid reflux. No prior medications started. Ultrasound (01/15/2025): Dating confirmed at 10w1d. Assessment & Plan: at 10w2d with IUP. First trimester symptoms include nausea and reflux. Prescribe reflux medication; send to [facility] Order genetic screening for aneuploidy a nd gender Provide comprehensive lab order s Continue routine care 02/18/25 -?-?-?-?-?-?-?-?-?-?-?-?- 14w 4d 81.25 kg 115/74 at 14 weeks and 4 days gestation presents for routine care. Reports improvement in nausea; currently under treatment for severe hyperemesis and GERD. No other complaints. Denies CLEMENS, VC, or epigastric pain. heart tones 161 bpm. All initial labs completed; blood test from 2 days ago pending. Plan: Problem List: 14w4d, hyperemes is gravidarum, gastroesophageal reflux. Continue current medical management. Fol low-up in 4 weeks. Await bloodwork results. Anatomy ultrasound to be scheduled at 20 weeks; patient will receive call from [employer]. Routine counseling provided. 04/06/25 -?-?-?-?-?-?-?-?-?-?-?-?- 21w 2d 83.178 kg 118/70 absent unknown 151 active at 21w2d by 04/05 MFM. FM+. FHR 151. Hyperemesis improved. MFM scan WNL. Plan: f/u for 1hr GTT next visit, continue routine care. ANOOP Calculator Estimated Delivery Date Method Current WG Current Estimate 08/15/25 LMP (Certain) 21w 4d Office Procedures OB Clinic LOC & Office Proc's Nursing/Assessment Patient Status: Established Patient OB Clinic Nursing Assessment: Medication Reconciliation, Update PMH in EMR and Vital Signs OB Clinic Coordination of Care: Complex Care and Chronic Disease 1-5, Consent,records obtained, informed consent, Education Simp Pt/Fam and 4+ Authorizations needed Special Needs: Heart tones Established Patient Charge Established Patient Point Assignment: 130 Established Patient Point Charge: EP Level 4 (120-155) Assessment & Plan Diagnosis / Problem List (1) Supervision of high risk , unspecified, first trimester: Status: Acute (2) Hyperemesis gravidarum: Status: Acute (3) Nausea: Status: Acute (4) GERD (gastroesophageal reflux disease): Status: Acute Plan Problem List - , first trimester - Hyperemesis gravidarum Assessment 19-year-old at 21 weeks and 2 days gestation presenting for routine care. ANOOP 08/15/2025. History of hyperemesis, now improved. heart rate 151 bpm. Maternal ultrasound from 04/05/2025 showed normal anatomy survey with all findings within normal limits. Patient reports movement. Plan - Follow up for one-hour glucose tolerance test at next appointment - Continue routine care
== END 2025-04-06 14:45 | disposition home or self-care (01) ==
LOC: HODSOBC 13:36
PROVIDERS: PCP Obstetrics & Gynecology; Referring Provider Obstetrics & Gynecology; Supervising Provider Obstetrics & Gynecology; Visit Provider Obstetrics & Gynecology
DX: O09.892 Supervision of other high risk pregnancies, second trimester (principal); O21.0 Mild hyperemesis gravidarum; O99.612 Diseases of the digestive system complicating pregnancy, second trimester; K21.9 Gastro-esophageal reflux disease without esophagitis; Z3A.21 21 weeks gestation of pregnancy
CPT/HCPCS: 99214; G0463

== ENCOUNTER 2025-05-04 08:23 | Outpatient (AMB) | payer MEDICAID, SELFPAY ==
[2025-05-04 08:34] VITALS: BP 127/77; PULSE 73; RESP 17; TEMP 36.6; O2SAT 98; BMI 29.3
--- NOTE | 2025-05-04 08:34 | OBCLNT_ITS ---
Vital Signs 05/04/25 08:34 Height 1.75 m Height Method Measured Weight 89.811 kg Weight Measurement Method Standing Scale BMI 29.3 BP 127/77 Blood Pressure Source Automatic Cuff Blood Pressure Location Right Upper Arm Position Sitting Respiration 17 Pulse 73 Pulse Source Monitor Temp 97.9 F Temp Source Temporal Artery Scan Pulse Oximetry (%) 98 Oxygen Delivery Method Room Air Allergies/Home Meds Allergies & Medications Allergies No Known Allergies Allergy (Verified 05/04/25 08:34) Medication Reconciliation vitamins with calcium no.72-iron 29 mg-folic acid 1 mg tablet ( Plus) 1 tab PO QDAY 90 days #90 tabs 04/06/25 [Rx Confirmed 05/04/25] Intake Visit Data Collection New Patient or Established: Established Patient (seen at [facility] within 3 years) Reason for Visit:: OBC Consent obtained for Telemed Visit: No Seen by Clinical Staff ONLY (RN/MA): No Emergency Department Manager Required: Yes Emergency Department Manager's name/title: ITA HUERTAS Do You Feel Safe at Home: Yes Authorities Contacted: N/A PCP or OBGYN visit in last 3 months: Yes Date of Last PCP or OBGYN visit: 04/06/25 Hx Now: Yes Are you currently on any form of Control: No Pain Present Currently: Yes Pain Location: Head Pain scale:: 5 Smoking Status Smoking Status: Never smoker Questionnaires Covid-19 Vaccine Questionnaire Has patient been vacinated for Covid-19 Have you been vacinated for Covid-19: No PHQ-9 PHQ-2 Over the last 2 weeks, how often have you been bothered by any of the following problems? 1. Little interest or pleasure in doing things: not at all PHQ-9 8. Moving or speaking so slowly that other people could have noticed? - Or the opposite - being so fidgety or restless that you have been moving around a lot more than usual: not at all Source: Developed by Drs. Todd Dorsey, Debbie Puentes, Jalil Cook and colleagues, with an educational [place] from [employer]. 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 7w. Bedside c/w dates. 4w. Labs 01/05/25 -?-?-?-?-?-?-?-?-?-?-?-?- 8w 2d 78.642 kg 116/73 175 active Ana Kebede presents for a visit with complaints of nausea and headaches. - STAT transvaginal ultrasound ordered - Return for NIPT (Non-Invasive Testing) once due date is confirmed - Follow up with ultrasound results - Prescription for anti-nausea medicatio n to be sent to the pharmacy - Provide patient with printed prescript ion. Initial labs were performed on 01-02-2025. Results show: - Hepatitis B: Negative - Hepatitis C: Negative - RPR: Non-reactive - Rubella: Immune - Blood group: A positive - Antibody screen: Negative - HIV: Negative - Gonorrhea and chlamydia: Negative - Urine culture: Trace ketones, 1+ occult blood, mixed genit al antelmo 01/19/25 -?-?-?-?-?-?-?-?-?-?-?-?- 10w 2d 78.018 kg 108/71 No CTX/LOF/VB. Reports good FM. No CLEMENS/VS, Epig/RUQ pain. Complains of nausea, vomiting, and acid reflux. No prior medications started. Ultrasound (01/15/2025): Dating confirmed at 10w1d. Assessment & Plan: at 10w2d with IUP. First trimester symptoms include nausea and reflux. Prescribe reflux medication; send to [facility] Order genetic screening for aneuploidy a nd gender Provide comprehensive lab order s Continue routine care 02/18/25 -?-?-?-?-?-?-?-?-?-?-?-?- 14w 4d 81.25 kg 115/74 at 14 weeks and 4 days gestation presents for routine care. Reports improvement in nausea; currently under treatment for severe hyperemesis and GERD. No other complaints. Denies CLEMENS, VC, or epigastric pain. heart tones 161 bpm. All initial labs completed; blood test from 2 days ago pending. Plan: Problem List: 14w4d, hyperemes is gravidarum, gastroesophageal reflux. Continue current medical management. Fol low-up in 4 weeks. Await bloodwork results. Anatomy ultrasound to be scheduled at 20 weeks; patient will receive call from [employer]. Routine counseling provided. 04/06/25 -?-?-?-?-?-?-?-?-?-?-?-?- 21w 2d 83.178 kg 118/70 absent unknown 151 active at 21w2d by 04/05 MFM. FM+. FHR 151. Hyperemesis improved. MFM scan WNL. Plan: f/u for 1hr GTT next visit, continue routine care. 05/04/25 -?-?-?-?-?-?-?-?-?-?-?-?- 25w 2d 89.811 kg 127/77 absent unknown 145 active Routine visit at 25 weeks and 5 days gestation Patient presents with swelling. One-hour glucose tolerance test result is 105, which is normal. Plan - Perform preeclampsia panel labs - Follow up in one week to review lab re sults - Continue monitoring for signs of preec lampsia (swelling, blood pressure) ANOOP Calculator Estimated Delivery Date Method Current WG Current Estimate 08/15/25 LMP (Certain) 25w 4d Office Procedures OB Clinic LOC & Office Proc's Nursing/Assessment Patient Status: Established Patient OB Clinic Nursing Assessment: Medication Reconciliation, Update PMH in EMR and Vital Signs OB Clinic Coordination of Care: Complex Care and Chronic Disease 1-5, Consent,records obtained, informed consent, Education Simp Pt/Fam, 4+ Authorizations needed and Results/Orders obtained Special Needs: Heart tones Established Patient Charge Established Patient Point Assignment: 135 Established Patient Point Charge: EP Level 4 (120-155) Assessment & Plan Diagnosis / Problem List (1) GERD (gastroesophageal reflux disease): Status: Acute (2) Supervision of high risk , unspecified, second trimester: Status: Acute
== END 2025-05-04 09:19 | disposition home or self-care (01) ==
LOC: HODSOBC 08:23
PROVIDERS: Supervising Provider Obstetrics & Gynecology; Visit Provider Obstetrics & Gynecology
DX: O09.892 Supervision of other high risk pregnancies, second trimester (principal); O99.612 Diseases of the digestive system complicating pregnancy, second trimester; K21.9 Gastro-esophageal reflux disease without esophagitis; Z3A.25 25 weeks gestation of pregnancy
CPT/HCPCS: 99214; G0463